=== PATIENT | female | born 1980 | race Caucasian/White ===

== ENCOUNTER → 2018-05-10 | Outpatient (CLI) | payer BC ==
--- NOTE | 2018-05-10 10:38 | CARD ---
MR#: [id number] Date of Study: 05/10/2018 Ordering Physician: LADY JUAREZ, Referring Physician: LADY JUAREZ, Tech: Marleny Olivares APPROVED REPORT EXAM: Two-dimensional and M-mode echocardiogram with Doppler and color Doppler. Other Information Quality : GoodHR: 60bpm INDICATION Murmur RISK FACTORS Hyperlipidemia 2D DIMENSIONS RVDd3.2 (2.9-3.5cm)Left Atrium(2D)3.9 (1.6-4.0cm) IVSd0.9 (0.7-1.1cm)Aortic Root(2D)2.5 (2.0-3.7cm) LVDd5.4 (3.9-5.9cm)LVOT Diameter2.0 (1.8-2.4cm) PWd1.1 (0.7-1.1cm)LVDs3.1 (2.5-4.0cm) FS (%) 43.7 %SV106.1 ml LVEF(%)74.4 (>50%) Aortic Valve AoV Peak Jeb.157.3cm/sAoV VTI40.1cm AO Peak GR.9.9mmHgLVOT Peak Jeb.132.5cm/s LVOT VTI 32.40cmAO Mean GR.6mmHg KRYSTIN (VMAX)2.84aw2DSN (VTI)2.64cm2 Mitral Valve MV E Ljgkdspx375.2cm/sMV E Peak Gr.106mmHg MV DECEL [id number] A Wuyfwxhb26.7cm/s MV WAC95coM/A Ratio1.3 MVA (PHT)3.85cm2 TDI E/Lateral E'8.0E/Medial E'11.4 Pulmonary Valve PV Peak Csglyldw696.3cm/sPV Peak Grad.6mmHg Tricuspid Valve TR P. Sjgxlgqk888lf/sRAP [id number] TR Peak Gr.07zcBeSMHT33esQi LEFT VENTRICLE The left ventricle is normal size. There is normal left ventricular wall thickness. The left ventricu lar systolic function is normal and the ejection fraction is within normal range. EF 55% There is nor mal LV segmental wall motion. Transmitral Doppler flow pattern is Grade II-pseudonormal filling dynam ics. RIGHT VENTRICLE The right ventricle is normal size. There is normal right ventricular wall thickness. The right ventr icular systolic function is normal. ATRIA The left atrium is borderline dilated. The right atrium size is normal. The interatrial septum is int act with no evidence for an atrial septal defect or patent foramen ovale as noted on 2-D or Doppler i maging. AORTIC VALVE The aortic valve is normal in structure and function. Doppler and Color Flow revealed no significant aortic regurgitation. There is no significant aortic valvular stenosis. MITRAL VALVE The mitral valve is normal in structure and function. There is no evidence of mitral valve prolapse. There is no mitral valve stenosis. Doppler and Color-flow revealed mild mitral regurgitation. TRICUSPID VALVE The tricuspid valve is normal in structure and function. Doppler and Color Flow revealed trace to mil d tricuspid regurgitation. There is no tricuspid valve stenosis. PULMONIC VALVE Doppler and Color Flow revealed no pulmonic valvular regurgitation. There is no pulmonic valvular galo nosis. GREAT VESSELS The aortic root is normal in size. The IVC is dilated and collapses >50% with inspiration. PERICARDIAL EFFUSION There is no evidence of significant pericardial effusion. Critical Notification Critical Value: No <Conclusion> The left ventricular systolic function is normal and the ejection fraction is within normal range. EF 50-55% There is normal LV segmental wall motion. Signed by : Phil Johnson, Electronically Approved : 05/10/2018 10:36:14
== END | disposition home or self-care (01) ==
LOC: ECHO 08:31
DX: I34.0 Nonrheumatic mitral (valve) insufficiency (principal)
CPT/HCPCS: 93306